=== PATIENT | female | born 1975 | race Caucasian/White ===

== ENCOUNTER 2018-07-01 11:15 | Emergency (ER) | payer OTHER ==
[2018-07-01 11:24] VITALS: BP 135/84; RESP 18; TEMP 98.2
[2018-07-01] MEDS ORDERED: IPRATROPIUM-ALBUTEROL 3 ML NEB INHALATION STA (11:32)
[2018-07-01] MEDS ORDERED: SODIUM CHLORIDE 0.9% 1,000 ML IV STA (11:55)
--- NOTE | 2018-07-01 11:56 | ED ---
SOB HPI - General Chief Complaint: Shortness of Breath Stated Complaint: SOB, chest pain, cough Time Seen by Provider: 07/01/18 11:32 Source: patient, RN notes reviewed, old records reviewed Mode of arrival: wheelchair Limitations: no limitations - History of Present Illness Initial Comments: This is a 43-year-old female the ER for evaluation. Patient has severe shortness of breath with cough and congestion. History of smoking. He isn't travel history no known sick contacts, does complain of shortness of breath with symptoms. No prior diagnosis of COPD or asthma. MD Complaint: shortness of breath, cough, pain with inspiration -: days(s) Severity: moderate Severity scale (1-10): 6 Quality: aching Consistency: constant Worsens With: exertion Known History Of: COPD Context: recent URI Associated Symptoms: chest pain, pain with inspiration, cough, sputum production Treatments Prior to Arrival: none - Related Data Home Medications Medication Instructions Recorded Confirmed Cold And Flu (Unknown) 1 tab PO BID 07/01/18 07/01/18 Guaifenesin/Dextromethorphan 1 tab PO BID 07/01/18 07/01/18 [Mucinex Dm ER 1,200-60 mg Tab] Ibuprofen [Motrin Ib] 200 mg PO Q8HR 07/01/18 07/01/18 Allergies Allergy/AdvReac Type Severity Reaction Status Date / Time erythromycin base Allergy Unknown Verified 07/01/18 12:43 Review of Systems ROS Statement: Those systems with pertinent positive or pertinent negative responses have been documented in the HPI. ROS Other: All systems not noted in ROS Statement are negative. Past Medical History Past Medical History: No Reported History History of Any Multi-Drug Resistant Organisms: None Reported Past Surgical History: Section Past Psychological History: No Psychological Hx Reported Smoking Status: Current every day smoker Past Alcohol Use History: None Reported Past Drug Use History: None Reported General Exam Limitations: no limitations General appearance: alert, in no apparent distress, anxious Head exam: Present: atraumatic, normocephalic, normal inspection Eye exam: Present: normal appearance, PERRL, EOMI. Absent: scleral icterus, conjunctival injection, periorbital swelling ENT exam: Present: normal exam, mucous membranes moist Neck exam: Present: normal inspection. Absent: tenderness, meningismus, lymphad enopathy Respiratory exam: Present: respiratory distress, wheezes. Absent: rales, rhonchi, stridor Cardiovascular Exam: Present: normal rhythm, tachycardia, normal heart sounds. Absent: systolic murmur, diastolic murmur, rubs, gallop, clicks GI/Abdominal exam: Present: soft, normal bowel sounds. Absent: distended, tenderness, guarding, rebound, rigid Extremities exam: Present: normal inspection, full ROM, normal capillary refill. Absent: tenderness, pedal edema, joint swelling, calf tenderness Back exam: Present: normal inspection Neurological exam: Present: alert, oriented X3, CN II-XII intact Psychiatric exam: Present: normal affect, normal mood Skin exam: Present: warm, dry, intact, normal color. Absent: rash Course Vital Signs 07/01/18 07/01/18 07/01/18 11:22 12:20 12:46 Temperature 98.2 F Pulse Rate 102 H 84 Respiratory 18 18 Rate Blood Pressure 135/84 O2 Sat by Pulse 96 Oximetry 07/01/18 07/01/18 13:05 13:35 Temperature Pulse Rate 82 84 Respiratory Rate Blood Pressure O2 Sat by Pulse Oximetry - Reevaluation(s) Reevaluation #1: 07/01/18 13:02 Medical record is reviewed Reevaluation #2: 07/01/18 13:06 Patient is feeling better with breathing treatments Reevaluation #3: 07/01/18 13:06 Patient is consult significant 10 minutes regarding smoking cessation Medical Decision Making - Medical Decision Making 43 female the ER for evaluation. Patient resents today for evaluation of acute bronchitis versus new-onset COPD. Patient will be follow-up with primary care, patient given smoking cessation conversation, patient given breathing treatments and steroids here with improvement. Patient is able to ambulate with pulse ox greater 90 can be discharged home - Lab Data Result diagrams: 07/01/18 12:20 07/01/18 12:20 Lab Results 07/01/18 07/01/18 07/01/18 Range/Units 12:20 12:20 12:20 WBC 7.7 (3.8-10.6) k/uL RBC 5.14 (3.80-5.40) m/uL Hgb 15.1 (11.4-16.0) gm/dL Hct 46.6 H (34.0-46.0) % MCV 90.7 (80.0-100.0) fL MCH 29.3 (25.0-35.0) pg MCHC 32.4 (31.0-37.0) g/dL RDW 13.8 (11.5-15.5) % Plt Count 248 (150-450) k/uL Neutrophils % 67 % Lymphocytes % 17 % Monocytes % 12 % Eosinophils % 1 % Basophils % 1 % Neutrophils # 5.1 (1.3-7.7) k/uL Lymphocytes # 1.3 (1.0-4.8) k/uL Monocytes # 0.9 (0-1.0) k/uL Eosinophils # 0.1 (0-0.7) k/uL Basophils # 0.1 (0-0.2) k/uL PT 10.4 (9.0-12.0) sec INR 1.0 (<1.2) APTT 24.5 (22.0-30.0) sec D-Dimer 0.46 (<0.60) mg/L FEU Sodium 137 (137-145) mmol/L Potassium 4.4 (3.5-5.1) mmol/L Chloride 107 (98-107) mmol/L Carbon Dioxide 24 (22-30) mmol/L Anion Gap 6 mmol/L BUN 10 (7-17) mg/dL Creatinine 0.70 (0.52-1.04) mg/dL Est GFR (CKD-EPI)AfAm >90 (>60 ml/min/1.73 sqM) Est GFR (CKD-EPI)NonAf >90 (>60 ml/min/1.73 sqM) Glucose 102 H (74-99) mg/dL Calcium 9.2 (8.4-10.2) mg/dL Total Bilirubin 0.4 (0.2-1.3) mg/dL AST 19 (14-36) U/L ALT 37 (9-52) U/L Alkaline Phosphatase 82 (38-126) U/L Troponin I (0.000-0.034) ng/mL NT-Pro-B Natriuret Pep pg/mL Total Protein 6.8 (6.3-8.2) g/dL Albumin 4.0 (3.5-5.0) g/dL 07/01/18 07/01/18 Range/Units 12:20 12:20 WBC (3.8-10.6) k/uL RBC (3.80-5.40) m/uL Hgb (11.4-16.0) gm/dL Hct (34.0-46.0) % MCV (80.0-100.0) fL MCH (25.0-35.0) pg MCHC (31.0-37.0) g/dL RDW (11.5-15.5) % Plt Count (150-450) k/uL Neutrophils % % Lymphocytes % % Monocytes % % Eosinophils % % Basophils % % Neutrophils # (1.3-7.7) k/uL Lymphocytes # (1.0-4.8) k/uL Monocytes # (0-1.0) k/uL Eosinophils # (0-0.7) k/uL Basophils # (0-0.2) k/uL PT (9.0-12.0) sec INR (<1.2) APTT (22.0-30.0) sec D-Dimer (<0.60) mg/L FEU Sodium (137-145) mmol/L Potassium (3.5-5.1) mmol/L Chloride (98-107) mmol/L Carbon Dioxide (22-30) mmol/L Anion Gap mmol/L BUN (7-17) mg/dL Creatinine (0.52-1.04) mg/dL Est GFR (CKD-EPI)AfAm (>60 ml/min/1.73 sqM) Est GFR (CKD-EPI)NonAf (>60 ml/min/1.73 sqM) Glucose (74-99) mg/dL Calcium (8.4-10.2) mg/dL Total Bilirubin (0.2-1.3) mg/dL AST (14-36) U/L ALT (9-52) U/L Alkaline Phosphatase (38-126) U/L Troponin I <0.012 (0.000-0.034) ng/mL NT-Pro-B Natriuret Pep 76 pg/mL Total Protein (6.3-8.2) g/dL Albumin (3.5-5.0) g/dL Disposition Clinical Impression: Acute exacerbation of chronic obstructive airways disease, Acute bronchitis Disposition: HOME SELF-CARE Condition: Good Instructions (If sedation given, give patient instructions): How to Stop Smoking (ED), Acute Bronchitis (ED) Is patient prescribed a controlled substance at d/c from ED?: No Referrals: Annita Sakrar MD [Primary Care Provider] - 1-2 days
[2018-07-01 12:43] LABS: Basophils # (A) 0.1 k/uL (0-0.2); Basophils % (A) 1 %; Eosinophils # (A) 0.1 k/uL (0-0.7); Eosinophils % (A) 1 %; HCT 46.6 % (34.0-46.0); HGB 15.1 gm/dL (11.4-16.0); Lymphocytes # (A) 1.3 k/uL (1.0-4.8); Lymphocytes % (A) 17 %; MCH 29.3 pg (25.0-35.0); MCHC 32.4 g/dL (31.0-37.0); MCV 90.7 fL (80.0-100.0); Mean Platelet Volume 6.8; Monocytes # (A) 0.9 k/uL (0-1.0); Monocytes % (A) 12 %; Neutrophils # (A) 5.1 k/uL (1.3-7.7); Neutrophils % (A) 67 %; Platelet Count 248 k/uL (150-450); RBC 5.14 m/uL (3.80-5.40); RDW 13.8 % (11.5-15.5); WBC 7.7 k/uL (3.8-10.6)
[2018-07-01] MEDS: SODIUM CHLORIDE 0.9% 1,000 ML IV STA (12:45)
[2018-07-01] MEDS: methylPREDNISolone SOD SUCCI 125 MG/2 ML VIAL IV STA (12:45)
[2018-07-01 12:46] LABS: ALT 37 U/L (9-52); AST 19 U/L (14-36); Alkaline Phosphatase 82 U/L (38-126); Anion Gap 6 mmol/L; Blood Urea Nitrogen 10 mg/dL (7-17); Calcium 9.2 mg/dL (8.4-10.2); Carbon Dioxide 24 mmol/L (22-30); Chloride 107 mmol/L (98-107); Glucose 102 mg/dL (74-99); Potassium 4.4 mmol/L (3.5-5.1); Sodium 137 mmol/L (137-145); Total Bilirubin 0.4 mg/dL (0.2-1.3); Total Protein 6.8 g/dL (6.3-8.2)
[2018-07-01] MEDS: ALBUTEROL NEBULIZED 2.5 MG/3 ML INHALATION STA (12:46)
[2018-07-01] MEDS: IPRATROPIUM 0.5 MG/2.5 ML NEBU INHALATION STA (12:46)
[2018-07-01 12:50] LABS: D-Dimer 0.46 mg/L FEU (<0.60); Partial Thromboplastin Time 24.5 sec (22.0-30.0); Prothrombin Time 10.4 sec (9.0-12.0)
[2018-07-01] MEDS: AZITHROMYCIN 500 MG in SODIUM CHLORIDE 0.9% 250 ML IVPB STA (12:50)
[2018-07-01 13:38] VITALS: PULSE 84
--- NOTE | 2018-07-01 14:09 | XR ---
EXAMINATION TYPE: XR chest 2V DATE OF EXAM: 07/01/2018 COMPARISON: NONE HISTORY: Difficulty breathing TECHNIQUE: Frontal and lateral views of the chest are obtained. FINDINGS: There is no focal air space opacity, pleural effusion, or pneumothorax seen. The cardiac silhouette size is within normal limits. The osseous structures are intact. IMPRESSION: No acute cardiopulmonary process.
== END 2018-07-01 15:20 | disposition home or self-care (01) ==
LOC: EC 11:15
DX: J44.1 Chronic obstructive pulmonary disease with (acute) exacerbation (principal); J20.9 Acute bronchitis, unspecified; F17.200 Nicotine dependence, unspecified, uncomplicated; Z79.899 Other long term (current) drug therapy; Z79.1 Long term (current) use of non-steroidal anti-inflammatories (NSAID); Z88.1 Allergy status to other antibiotic agents
CPT/HCPCS: 36415; 94644; 93005; 85379; 83880; 80053; 84484; 85025; 85610; 85730; 71046; 99285; 99406; 96365; 96366; 96375; J2930; J0456

== ENCOUNTER → 2021-11-27 | Outpatient (CLI) | payer OTHER ==
[2021-11-27 19:31] LABS: T4, Free (Free Thyroxine) 1.09 ng/dL (0.800-1.800)
[2021-11-27 20:08] LABS: HCT 40.3 % (37.2-46.3); MCH 29.6 pg (27.0-32.0); MCHC 32.3 g/dL (32.0-37.0); MCV 91.8 fL (80.0-97.0); Mean Platelet Volume 10.7 fL (9.5-12.2); NRBC Per 100 WBC 0 /100 WBCS (0.0-0.0); Platelet Count 317 X 10*3/uL (140-440); RBC 4.39 X 10*6/uL (4.10-5.20); RDW 13.9 % (11.5-14.5); WBC 9.33 X 10*3/uL (4.50-10.00)
== END | disposition home or self-care (01) ==
LOC: LABWHC1 10:14
PROVIDERS: ATTEND Internal Medicine
DX: E66.9 Obesity, unspecified (principal); R53.82 Chronic fatigue, unspecified
CPT/HCPCS: 36415; 82607; 82652; 83036; 83540; 84439; 84443; 84481; 85027

== ENCOUNTER 2023-12-30 20:56 | Emergency (ER) | payer OTHER ==
[2023-12-30 21:12] VITALS: BP 131/76; PULSE 124; TEMP 98.2
--- NOTE | 2023-12-30 21:12 | ED ---
SOB HPI - General Source: patient, RN notes reviewed Mode of arrival: ambulatory Limitations: no limitations - History of Present Illness MD Complaint: shortness of breath <Rosa Rosario - Last Filed: 12/30/23 21:09> <Paulino Gamez - Last Filed: 12/31/23 01:06> - General Chief Complaint: Shortness of Breath Stated Complaint: SOB, CP, 191/112 BP Time Seen by Provider: 12/30/23 21:05 - History of Present Illness Initial Comments: Quick Note: This is a 48-year-old female who presents to the emergency department for shortness of breath and chest pain. States that today she started developing sharp stabbing pain in the center of her chest and feels very short of breath. She also noticed that her blood pressure seemed very elevated at home. Reports a history of mini strokes. Denies any history of heart attacks. Not currently taking any blood thinners. (Rosa Rosario) Dictation was produced using [employer] dictation software. please excuse any grammatical, word or spelling errors. Chief Complaint: 48-year-old female with multiple complaints History of Present Illness: Patient is a obese 48-year-old female presents to the emergency department for multiple complaints. Patient denies any significant medical history. States that she has a sharp jabbing pain, shortness of breath, headache, whole body swelling and calf tenderness. Patient denies ever having had history of blood clots. States that the pain is sharp and intermittent. States that is not triggered by movement. States that it comes on spontaneously. Symptoms do not radiate to the arms or legs. No sweating nausea or clamminess with the chest pain. Denies any cardiac history. Patient denies any chest pain at the bedside currently. Denies any family history of heart attacks. The ROS documented in this emergency department record has been reviewed and c onfirmed by me. Those systems with pertinent positive or negative responses have been documented in the HPI. All other systems are other negative and/or noncontributory. (Paulino Gamez) - Related Data Home Medications Medication Instructions Recorded Confirmed Cold And Flu (Unknown) 1 tab PO BID 07/01/18 07/01/18 Guaifenesin/Dextromethorphan 1 tab PO BID 07/01/18 07/01/18 [Mucinex Dm ER 1,200-60 mg Tab] Ibuprofen [Motrin Ib] 200 mg PO Q8HR 07/01/18 07/01/18 Previous Rx's Medication Instructions Recorded Albuterol Sulfate [Proair Hfa] 1 - 2 puff INHALATION Q4H PRN #1 07/01/18 inhaler Azithromycin [Zithromax Z-pack (6 0 mg PO DIRECTED #1 pack 07/01/18 tabs)] predniSONE 50 mg PO DAILY #5 tab 07/01/18 Allergies Allergy/AdvReac Type Severity Reaction Status Date / Time erythromycin base Allergy Unknown Verified 12/30/23 21:12 Review of Systems ROS Other: All systems not noted in ROS Statement are negative. <Rosa Rosario - Last Filed: 12/30/23 21:09> ROS Other: All systems not noted in ROS Statement are negative. <Paulino Gamez - Last Filed: 12/31/23 01:06> ROS Statement: Those systems with pertinent positive or pertinent negative responses have been documented in the HPI. Past Medical History Past Medical History: No Reported History History of Any Multi-Drug Resistant Organisms: None Reported Past Surgical History: Section Past Psychological History: No Psychological Hx Reported Past Alcohol Use History: None Reported Past Drug Use History: None Reported <Rosa Rosario - Last Filed: 12/30/23 21:09> General Exam <Rosa Rosario - Last Filed: 12/30/23 21:09> <Paulino Gamez - Last Filed: 12/31/23 01:06> - General Exam Comments Initial Comments: Visual Physical Exam Vital signs reviewed General: Well-appearing, nontoxic, no acute distress. Head: Normocephalic, atraumatic Eyes: PERRLA, EOMI ENT: Airway patent Chest: Nonlabored breathing Skin: No visual rash, normal skin tone Neuro: Alert and oriented 3 Musculoskeletal: No gross abnormalities (Rosa Rosario) PHYSICAL EXAM: General Impression: Alert and oriented x3, not in acute distress HEENT: Normocephalic atraumatic, extra-ocular movements intact, pupils equal and reactive to light bilaterally, mucous membranes moist. Cardiovascular: Heart regular rate and rhythm Chest: Able to complete full sentences, no retractions, no tachypnea Abdomen: abdomen soft, non-tender, non-distended, no organomegaly Musculoskeletal: Pulses present and equal in all extremities, no peripheral edema Motor: no focal deficits noted Neurological: CN II-XII grossly intact, no focal motor or sensory deficits noted Skin: Intact with no visualized rashes Psych: Normal affect and mood (Paulino Gamez) Course Vital Signs 12/30/23 21:06 Temperature 98.2 F Pulse Rate 124 H Respiratory 18 Rate Blood Pressure 131/76 O2 Sat by Pulse 97 Oximetry Medical Decision Making <Rosa Rosario - Last Filed: 12/30/23 21:09> - Lab Data Result diagrams: 12/30/23 21:19 12/30/23 21:19 <Paulino Gamez - Last Filed: 12/31/23 01:06> - Medical Decision Making I performed the QuickNote portion of this chart. Signed Rosa Rosario PA-C. (Rosa Rosario) Was pt. sent in by a medical professional or institution ([facility], [facility], urgent care, hospital, or fpc...) When possible be specific @ -[No] Did you speak to anyone other than the patient for history (EMS, parent, family, police, friend...)? What history was obtained from this source @ -[No] Did you review nursing and triage notes (agree or disagree)? Why? @ -[I reviewed and agree with nursing and triage notes] Were old charts reviewed (outside hosp., previous admission, EMS record, old EKG, old radiological studies, urgent care reports/EKG's, fpc records)? Report findings @ -[No old charts were reviewed] Differential Diagnosis (chest pain, altered mental status, abdominal pain women, abdominal pain men, vaginal bleeding, musculoskeletal, weakness, fever, dyspnea, syncope, headache, dizziness, GI bleed, back pain, seizure, CVA, palpatations, mental health)? @ -Differential Chest Pain: Stable Angina, Unstable Angina, STEMI, NSTEMI Aortic Dissection, Pneumothorax, Musculoskeletal, Esophageal Spasm GERD, Cholecystitis, Pancreatitis, Zoster, this is not meant to be an all-inclusive list. EKG interpreted by me (3pts min.). @ -My EKG interpretation: Ventricular rate 113, sinus tachycardia,. 120, QRS 82, QTc 384. No SC prolongation, no QTC prolongation, no ST or T-wave changes noted.Overall, this EKG is unremarkable X-rays interpreted by me (1pt min.). @ -Chest x-ray shows no acute processes CT interpreted by me (1pt min.). @ -[None done] U/S interpreted by me (1pt. min.). @ -[None done] What testing was considered but not performed or refused? (CT, X-rays, U/S, labs)? Why? @ -[None] What meds were considered but not given or refused? Why? @ -[None] Was smoking cessation discussed for >3mins.? @ -[No] Were there social determinants of health that impacted care today? How? (Homelessness, low income, unemployed, alcoholism, drug addiction, transportation, low edu. Level, literacy, decrease access to med. care, senior living, rehab)? @ -[No] Was there de-escalation of care discussed even if they declined (Discuss DNR or withdrawal of care, Hospice)? DNR status @ -[No] What co-morbidities impacted this encounter? (DM, HTN, Smoking, COPD, CAD, Cancer, CVA, ARF, Chemo, Hep., AIDS, mental health diagnosis, sleep apnea, morbid obesity)? @ -[None] Was patient admitted / discharged? Hospital course, mention meds given and route, prescriptions, significant lab abnormalities, going to OR and other pertinent info. @ -48-year-old obese female with multiple complaints. She states that her complaints include headache, swelling in her whole body, calf tenderness, shortness of breath, abdominal pain. Patient well-appearing at the bedside she is in no acute distress. Physical examination is benign. Laboratory evaluation is nonacute. D-dimer is normal. Troponin is negative. BNP is negative. Viral testing is negative. Discussed with patient that she should follow-up w ith her primary care doctor and emergent pathologies have been ruled out. Patient offered analgesics for her headache however she refuses like to be discharged. Did you discuss the management of the patient with other professionals (professionals i.e. , PA, [employer], lab, RT, psych nurse, licensed social worker, bag printer, teacher, credit officer, case management associate)? Give summary @ -[No] Was critical care preformed (if so, how long)? @ -[No] Undiagnosed new problem with uncertain prognosis? @ -[No] Drug Therapy requiring intensive monitoring for toxicity (Heparin, Nitro, Insulin, Cardizem)? @ -[No] Were any procedures done? @ -[No] Diagnosis/symptom? Acute, or Chronic, or Acute on Chronic? Uncomplicated (without systemic symptoms) or Complicated (systemic symptoms)? @ -Multiple complaints Side effects of treatment? @ -[No] Exacerbation, Progression, or Severe Exacerbation? @ -[No] Poses a threat to life or bodily function? How? (Chest pain, [place], [place], pneumonia, PE, COPD, DKA, ARF, appy, cholecystitis, CVA, Diverticulitis, Homicidal, Suicidal, threat to staff... and all critical care pts) @ -[No] (Paulino Gamez) - Lab Data Lab Results 12/30/23 12/30/23 12/30/23 Range/Units 21:19 21:19 21:19 WBC 10.3 (3.8-10.6) k/uL RBC 4.65 (3.80-5.40) m/uL Hgb 13.4 (11.4-16.0) gm/dL Hct 40.7 (34.0-46.0) % MCV 87.4 (80.0-100.0) fL MCH 28.7 (25.0-35.0) pg MCHC 32.8 (31.0-37.0) g/dL RDW 14.8 (11.5-15.5) % Plt Count 299 (150-450) k/uL MPV 7.7 Neutrophils % 56 % Lymphocytes % 31 % Monocytes % 6 % Eosinophils % 4 % Basophils % 1 % Neutrophils # 5.7 (1.3-7.7) k/uL Lymphocytes # 3.2 (1.0-4.8) k/uL Monocytes # 0.6 (0-1.0) k/uL Eosinophils # 0.4 (0-0.7) k/uL Basophils # 0.1 (0-0.2) k/uL PT 9.8 L (10.0-12.5) sec INR 0.9 (<1.2) APTT 22.7 (22.0-30.0) sec D-Dimer 0.34 (<0.60) mg/L FEU Sodium 138 (137-145) mmol/L Potassium 4.4 (3.5-5.1) mmol/L Chloride 105 (98-107) mmol/L Carbon Dioxide 24 (22-30) mmol/L Anion Gap 9 mmol/L BUN 11 (7-17) mg/dL Creatinine 0.60 (0.52-1.04) mg/dL Est GFR (CKD-EPI)AfAm >90 (>60 ml/min/1.73 sqM) Est GFR (CKD-EPI)NonAf >90 (>60 ml/min/1.73 sqM) Glucose 148 H (74-99) mg/dL Calcium 9.4 (8.4-10.2) mg/dL Magnesium 1.9 (1.6-2.3) mg/dL Total Bilirubin 0.5 (0.2-1.3) mg/dL AST 39 H (14-36) U/L ALT 44 H (4-34) U/L Alkaline Phosphatase 91 (38-126) U/L Troponin I (0.000-0.034) ng/mL NT-Pro-B Natriuret Pep <20 pg/mL Total Protein 7.0 (6.3-8.2) g/dL Albumin 4.1 (3.5-5.0) g/dL Influenza Type A (PCR) (Not Detectd) Influenza Type B (PCR) (Not Detectd) RSV (PCR) (Not Detectd) SARS-CoV-2 (PCR) (Not Detectd) 12/30/23 12/30/23 Range/Units 21:19 21:19 WBC (3.8-10.6) k/uL RBC (3.80-5.40) m/uL Hgb (11.4-16.0) gm/dL Hct (34.0-46.0) % MCV (80.0-100.0) fL MCH (25.0-35.0) pg MCHC (31.0-37.0) g/dL RDW (11.5-15.5) % Plt Count (150-450) k/uL MPV Neutrophils % % Lymphocytes % % Monocytes % % Eosinophils % % Basophils % % Neutrophils # (1.3-7.7) k/uL Lymphocytes # (1.0-4.8) k/uL Monocytes # (0-1.0) k/uL Eosinophils # (0-0.7) k/uL Basophils # (0-0.2) k/uL PT (10.0-12.5) sec INR (<1.2) APTT (22.0-30.0) sec D-Dimer (<0.60) mg/L FEU Sodium (137-145) mmol/L Potassium (3.5-5.1) mmol/L Chloride (98-107) mmol/L Carbon Dioxide (22-30) mmol/L Anion Gap mmol/L BUN (7-17) mg/dL Creatinine (0.52-1.04) mg/dL Est GFR (CKD-EPI)AfAm (>60 ml/min/1.73 sqM) Est GFR (CKD-EPI)NonAf (>60 ml/min/1.73 sqM) Glucose (74-99) mg/dL Calcium (8.4-10.2) mg/dL Magnesium (1.6-2.3) mg/dL Total Bilirubin (0.2-1.3) mg/dL AST (14-36) U/L ALT (4-34) U/L Alkaline Phosphatase (38-126) U/L Troponin I <0.012 (0.000-0.034) ng/mL NT-Pro-B Natriuret Pep pg/mL Total Protein (6.3-8.2) g/dL Albumin (3.5-5.0) g/dL Influenza Type A (PCR) Not Detected (Not Detectd) Influenza Type B (PCR) Not Detected (Not Detectd) RSV (PCR) Not Detected (Not Detectd) SARS-CoV-2 (PCR) Not Detected (Not Detectd) Disposition <Rosa Rosario - Last Filed: 12/30/23 21:09> Is patient prescribed a controlled substance at d/c from ED?: No Time of Disposition: 01:06 <Paulino Gamez - Last Filed: 12/31/23 01:06> Clinical Impression: Multiple complaints Disposition: HOME SELF-CARE Condition: Good Instructions (If sedation given, give patient instructions): Leg Edema (ED) Referrals: None,Stated [Primary Care Provider] - 1-2 days
[2023-12-30 21:36] LABS: Basophils # (A) 0.1 k/uL (0-0.2); Basophils % (A) 1 %; Eosinophils # (A) 0.4 k/uL (0-0.7); Eosinophils % (A) 4 %; HCT 40.7 % (34.0-46.0); HGB 13.4 gm/dL (11.4-16.0); Lymphocytes # (A) 3.2 k/uL (1.0-4.8); Lymphocytes % (A) 31 %; MCH 28.7 pg (25.0-35.0); MCHC 32.8 g/dL (31.0-37.0); MCV 87.4 fL (80.0-100.0); Mean Platelet Volume 7.7; Monocytes # (A) 0.6 k/uL (0-1.0); Monocytes % (A) 6 %; Neutrophils # (A) 5.7 k/uL (1.3-7.7); Neutrophils % (A) 56 %; Platelet Count 299 k/uL (150-450); RBC 4.65 m/uL (3.80-5.40); RDW 14.8 % (11.5-15.5); WBC 10.3 k/uL (3.8-10.6)
--- NOTE | 2023-12-30 21:41 | XR ---
EXAMINATION TYPE: XR chest 2V DATE OF EXAM: 12/30/2023 COMPARISON: 07/01/2018 HISTORY: Chest pain TECHNIQUE: Frontal and lateral views of the chest are obtained. FINDINGS: There is no focal air space opacity. No evidence for pneumothorax. No pleural effusion. The cardiac silhouette size is within normal limits. The osseous structures are grossly intact. IMPRESSION: 1. No acute cardiopulmonary process.
[2023-12-30 21:50] LABS: INR 0.9 (<1.2); Partial Thromboplastin Time 22.7 sec (22.0-30.0); Prothrombin Time 9.8 sec (10.0-12.5)
[2023-12-30 21:51] LABS: ALT 44 U/L (4-34); African American GFR (CKD) >90 (>60 ml/min/1.73 sqM); Albumin 4.1 g/dL (3.5-5.0); Anion Gap 9 mmol/L; Blood Urea Nitrogen 11 mg/dL (7-17); Calcium 9.4 mg/dL (8.4-10.2); Carbon Dioxide 24 mmol/L (22-30); Chloride 105 mmol/L (98-107); Glucose 148 mg/dL (74-99); Non-African American GFR(CKD) >90 (>60 ml/min/1.73 sqM); Sodium 138 mmol/L (137-145); Total Bilirubin 0.5 mg/dL (0.2-1.3)
[2023-12-30 21:57] LABS: AST 39 U/L (14-36); Alkaline Phosphatase 91 U/L (38-126); Magnesium 1.9 mg/dL (1.6-2.3); Potassium 4.4 mmol/L (3.5-5.1)
[2023-12-30 21:59] LABS: NT-Pro-B-Type Natriuretic Pept <20 pg/mL
[2023-12-31 01:16] VITALS: RESP 17
== END 2023-12-31 01:26 | disposition home or self-care (01) ==
LOC: EC 20:56
CPT/HCPCS: 36415; 71046; 80053; 83735; 83880; 84484; 85025; 85379; 85610; 85730; 87636; 93005; 99285